=== PATIENT | male | born 1995 | race Caucasian/White ===

== ENCOUNTER 2017-01-27 19:30 | Emergency (ER) | payer OTHER ==
[~2017-01-27] VITALS: Ht 172.7 cm; Wt 92.5 kg
[2017-01-27 19:43] VITALS: TEMP 36.8; Ht 172.7 cm; Wt 92.5 kg
--- NOTE | 2017-01-27 20:25 | DIAGNOSTIC IMAGING REPORT ---
LEFT KNEE 3 VIEWS CLINICAL HISTORY: Left knee pain. Reported history of knee dislocation. FINDINGS: AP, crosstable lateral, and sunrise views of left knee are obtained. No prior studies are available for comparison at the time of dictation. The skeletal structures are well mineralized. No fracture is seen. The joint spaces are preserved. There is no significant joint effusion. Mild soft tissue swelling is present around the knee. IMPRESSION: Mild soft tissue swelling with no acute bony abnormality identified in the left knee. Electronically signed by: Enrique Malave M.D. 01/27/2017 8:24 PM Dictated Date/Time: 01/27/2017 8:23 PM
--- NOTE | 2017-01-27 20:45 | EMERGENCY ROOM VISIT NOTE ---
ED Visit Note First contact with patient: 19:46 CHIEF COMPLAINT: Knee pain HISTORY OF PRESENT ILLNESS: This 21-year-old male patient presents to the emergency department ambulatory for evaluation of left knee pain. The patient states that he injured his knee while playing basketball tonight. He states that he landed on the leg and felt a crunching sensation in the knee and believes that he may have dislocated the knee. He states that he "felt things shifting" inside his knee. He reports he had an injury to the knee approximately 3 years ago and was diagnosed with a meniscus tear. He did not have any repair of this and did not follow-up with orthopedics. He rates his current discomfort a 5/10 and states his pain is worse with weightbearing and walking. No numbness or tingling. No ankle, foot or hip pain. REVIEW OF SYSTEMS: A 6 system review of systems was completed with positives and pertinent negatives listed in the HPI. ALLERGIES: No known drug allergies MEDICATIONS: No chronic medications PMH: No significant past medical history. SOCIAL HISTORY: The patient is a [employer] student and lives with roommates. He smokes cigarettes occasionally and admits to occasional alcohol use. PHYSICAL EXAM: Vital Signs: Reviewed Nurse's notes, vital signs stable. GENERAL : This is a 21-year-old male, no acute distress, but appears in pain, well- developed, well-nourished. MENTAL STATUS: Alert, oriented to person place and time, and cooperative. MUSCULOSKELETAL: The left knee is not swollen. There is no ecchymosis. There is no joint effusion present. The patient is tender along the medial aspect of the knee. There is no joint line tenderness. The patella does not subluxate. Range of motion is full. Strength of the quads and hamstrings is 5/5. Rob's is negative. Sachin's and Anterior Drawer tests are negative. There is no laxity with varus and valgus stressing. The foot and toes are warm and well-perfused. Dorsalis pedis pulse 2+. Sensation to pain and light touch is intact. Capillary refill less than 2 seconds. EMERGENCY DEPARTMENT COURSE: I examined the patient. X-rays of the left knee were reviewed by myself and read by radiology and reveal no acute findings. The patient has a knee brace he has been wearing at home. He was instructed on the use of crutches. Conservative measures were discussed and he was given referral for a local orthopedic provider. He will follow-up with them for further evaluation. He verbalized understanding of my assessment and treatment plan. The patient was discharged home in good condition. DIAGNOSIS: Left knee pain Current/Historical Medications No Active Prescriptions or Reported Meds Allergies Coded Allergies: No Known Allergies (Unverified , 01/27/17) Vital Signs Date Time Temp Pulse Resp B/P (MAP) Pulse Ox O2 Delivery O2 Flow Rate FiO2 01/27/17 20:51 78 14 140/68 97 Room Air 01/27/17 19:43 36.8 87 16 141/86 96 Room Air Departure Information Impression Primary Impression: Left knee pain Dispostion Home / Self-Care Condition GOOD Prescriptions No Active Prescriptions or Reported Meds Referrals No Doctor, Assigned (PCP) Scott Munoz, DO Patient Instructions [facility] Additional Instructions You have been treated in the Emergency Department for Knee Pain. For pain control, you can use the following [id number] medicines (if >12 yo): - Regular strength (325mg/tab) Tylenol (acetaminophen) 2 tabs every 4-6 hours as needed. Do not exceed 12 tablets in a 24 hour period. Avoid taking more than 4 grams (4000 mg) of Tylenol per day. This includes any other sources of acetaminophen you may take on a regular basis. - Regular strength (200 mg/tab) Advil (ibuprofen) 1-2 tabs every 4-6 hours as needed. Do not exceed a dose of 3200 mg per day. If this is a recent injury (<24 hrs), ice can be applied to the area of pain for the first 3 days to help decrease pain and inflammation. Ice massages can be performed by freezing water in a paper cup, peeling back the cup to expose the ice and then massaging over the affected area. You have been provided the number for an Orthopaedic Surgeon. You should call this number as soon as possible to establish a follow-up visit from today's Emergency Department visit. Keep the knee brace in place until cleared by Orthopedics. Use the crutches you have been provided to keep ALL weight off of the knee until weight bearing is tolerable. Return to the Emergency Department if your current symptoms worsen despite treatment course outlined above.
[2017-01-27 20:51] VITALS: BP 140/68; PULSE 78; O2SAT 97
== END 2017-01-27 20:53 | disposition home or self-care (01) ==
LOC: C.EDB 19:31 → C.EDD 20:53
DX: M25.562 Pain in left knee (principal); X58.XXXA Exposure to other specified factors, initial encounter; Y93.67 Activity, basketball; F17.200 Nicotine dependence, unspecified, uncomplicated